=== PATIENT | female | born 2000 | race African-American/Black ===

== ENCOUNTER 2021-08-20 10:20 | Emergency (ER) | payer MEDICAID ==
[~2021-08-20] VITALS: Ht 154.9 cm; Wt 57.2 kg
[2021-08-20 10:25] VITALS: BP_SYST 140
--- NOTE | 2021-08-20 10:25 | NUR ---
Patient to ER bed TENT1 to gown for evaluation. Side rails up.
--- NOTE | 2021-08-20 10:30 | NUR ---
PT REPORTS SORE THROAT, CHILLS, BODY ACHES, N/V STARTING YESTERDAY. PT IS AMBULATORY, AAOX4, VSS, NO APPARANT DISTRESS ON ARRIVAL
--- NOTE | 2021-08-20 11:02 | NUR ---
ER DR. WARD EXAMINING PT IN TENT
[2021-08-20] MEDS ORDERED: PHEN-707 PO (11:06)
[2021-08-20] MEDS ORDERED: LOPE2CAP PO (11:06)
[2021-08-20 11:21] LABS: STREPTOCOCCUS A SCREEN (RAPID) NEGATIVE (NEGATIVE)
[2021-08-20 11:38] VITALS: BP_SYST 140
--- NOTE | 2021-08-20 11:38 | NUR ---
Patient given written and verbal discharge instructions and verbalizes understanding. ER MD discussed with patient the results and treatment provided. Patient in stable condition. ID arm band removed. Rx of IMODIUM & COLD AND FLU SEVERE CAPS given. Patient educated on pain management and to follow up with PMD. Pain Scale 0/10. Opportunity for questions provided and answered. Medication side effect fact sheet provided.
== END 2021-08-20 11:38 | disposition home or self-care (01) ==
LOC: SED 10:20
DX: U07.1 COVID-19 (principal); B34.9 Viral infection, unspecified; J02.9 Acute pharyngitis, unspecified; R19.7 Diarrhea, unspecified
CPT/HCPCS: 36415; 86403; 87081; 99283

== ENCOUNTER 2021-10-03 09:54 | Emergency (ER) | payer MEDICAID ==
[~2021-10-03] VITALS: Ht 154.9 cm; Wt 57.2 kg
[~2021-10-03 09:54] MED LIST: LOPE2CAP PO; PHEN-707 PO
[2021-10-03 10:51] VITALS: BP_SYST 102
--- NOTE | 2021-10-03 11:15 | NUR ---
BIBS WITH C/C OF HAVING DEVELOPED A RASH TO CHEST AND ABDOMEN 3 DAYS AGO AND HAS NOW PROGRESSED TO BILATERAL ARMS AND LEGS. STATES RASH IS ITCHY BUT NOT PAINFUL. RASH NOTED WITHOUT ANY BLISTERS/CRUSTED OVER. PT PLACED IN TENT. MADE AWARE.
--- NOTE | 2021-10-03 11:30 | NUR ---
ER at bedside examining patient.
[2021-10-03] MEDS ORDERED: CETI10CA PO (11:40)
[2021-10-03] MEDS ORDERED: PRED50TA PO (11:40)
[2021-10-03] MEDS ORDERED: CEPH-548 PO (11:40)
--- NOTE | 2021-10-03 11:54 | NUR ---
Patient given written and verbal discharge instructions and verbalizes understanding. ER MD discussed with patient the results and treatment provided. Patient in stable condition. ID arm band removed. Rx of Zyrtec, cephalexin, and prednisone given. Patient educated on pain management and to follow up with PMD. Opportunity for questions provided and answered. Medication side effect fact sheet provided.
--- NOTE | 2021-10-03 11:55 | NUR ---
Pt presents to the ER bib friendCC red bumps located over anterior torso spreading to bilateral extremities. Pt states itchiness denies pain denies fever. skin intact, aaox4.
[2021-10-03 12:03] VITALS: BP_SYST 102
== END 2021-10-03 12:03 | disposition home or self-care (01) ==
LOC: SED 09:54
DX: L73.9 Follicular disorder, unspecified (principal); R21 Rash and other nonspecific skin eruption; Z79.899 Other long term (current) drug therapy
CPT/HCPCS: 99283

== ENCOUNTER 2022-06-15 12:51 | Emergency (ER) | payer MEDICAID ==
[~2022-06-15] VITALS: Ht 152.4 cm; Wt 49.9 kg
[~2022-06-15 12:51] MED LIST changes: +CEPH-548 PO; +CETI10CA PO; +PRED50TA PO
[2022-06-15 13:33] VITALS: BP_SYST 120
[2022-06-15 13:47] VITALS: BP_SYST 126
[2022-06-15 14:19] LABS: BASOPHILS % (AUTO) 0.2 % (0.0-2.0); EOSINOPHILS % (AUTO) 0.1 % (0.0-4.0); HEMOGLOBIN 13.7 g/dL (12.0-16.0); LYMPHOCYTES # (AUTO) 1.1 K/uL (1.0-5.5); LYMPHOCYTES % (AUTO) 14.9 % (20.5-51.5); MEAN CORPUSCULAR HEMOGLOBIN 31 pg (27-31); MEAN CORPUSCULAR HGB CONC 34 % (32-36); MEAN CORPUSCULAR VOLUME 94 fL (79.0-98.0); MONOCYTES # (AUTO) 0.3 K/uL (0.0-1.0); MONOCYTES % (AUTO) 4.4 % (1.7-9.3); NEUTROPHILS # (AUTO) 6.1 K/uL (1.8-7.7); NEUTROPHILS % (AUTO) 80.4 % (40.0-70.0); PLATELET COUNT (AUTO) 190 K/uL (130-430); RED BLOOD CELL COUNT(AUTO) 4.37 MIL/uL (4.2-6.2); RED CELL DISTRIBUTION WIDTH 12.8 % (9.0-15.0); WHITE BLOOD COUNT (AUTO) 7.6 K/uL (4.8-10.8)
[2022-06-15 14:23] LABS: BILIRUBIN,URINE NEGATIVE (NEGATIVE); BLOOD, URINE NEGATIVE (NEGATIVE); CLARITY/URINE CLEAR (CLEAR); COLOR,URINE YELLOW (YELLOW); GLUCOSE,URINE NEGATIVE (NEGATIVE); KETONES,URINE TRACE (NEGATIVE); LEUKOCYTE ESTERASE ,URINE NEGATIVE (NEGATIVE); NITRITE, URINE NEGATIVE (NEGATIVE); PH,URINE 7.5 (5.0-8.0); PROTEIN URINE 2+ (NEGATIVE); UROBILINOGEN,URINE 0.2 (0.2-1.0)
[2022-06-15 14:30] LABS: ANION GAP 11 (5-15); CALCIUM 8.6 mg/dL (8.4-11.0); CHLORIDE 103 mmol/L (98-107); CREATININE 0.71 mg/dL (0.55-1.30); GFR AFRICAN AMERICAN 132 mL/min (>90); GLUCOSE 92 mg/dL (70-99); UREA NITROGEN, BLOOD 11 mg/dL (8-21)
[2022-06-15 14:31] LABS: ACETONE, SERUM NEGATIVE (NEGATIVE)
[2022-06-15 14:34] LABS: ALANINE AMINOTRANSFERASE 24 U/L (12-78); ALBUMIN 4.1 g/dL (3.4-4.8); AMYLASE 101 U/L (0-100); ASPARTATE AMINOTRANSFERASE 17 U/L (10-37); C-REACTIVE PROTEIN QUANT < 0.2 mg/dL (0-0.5); LIPASE 53 U/L (73-393); TOTAL BILIRUBIN 0.9 mg/dL (0.0-1.0)
[2022-06-15 14:46] LABS: BACTERIA,URINE FEW /HPF (None Seen); MUCUS,URINE None Seen /LPF (None Seen); RBC,URINE NONE SEEN /HPF (0-3); WBC,URINE 0-3 /HPF (0-3)
[2022-06-15] MEDS ORDERED: OMEP20CA15 PO (17:09)
[2022-06-15] MEDS ORDERED: ONDA-8 TL (17:09)
[2022-06-15 17:16] VITALS: BP_SYST 126
== END 2022-06-15 17:17 | disposition home or self-care (01) ==
LOC: SED 12:51
DX: K29.20 Alcoholic gastritis without bleeding (principal); R10.13 Epigastric pain; R11.0 Nausea; Z79.899 Other long term (current) drug therapy
CPT/HCPCS: 36415; 76376; 80053; 81000; 81025; 82009; 82150; 83605; 83690; 84703; 85025; 86140; 99284